=== PATIENT | male | born 1945 | race Caucasian/White ===

== ENCOUNTER → 2019-09-13 | Outpatient (CLI) | payer MEDICARE ==
--- NOTE | 2019-09-14 07:36 | ECHOF ---
Referral Reason:R94.31 abnormal EKG MEASUREMENTS -------- HEIGHT: 167.6 cm WEIGHT: 96.6 kg BP: RVIDd: 1.8 cm (< 3.3) IVSd: 1.0 cm (0.6 - 1.1) LVIDd: 4.1 cm (3.9 - 5.3) LVPWd: 0.9 cm (0.6 - 1.1) IVSs: 1.7 cm LVIDs: 1.6 cm LVPWs: 1.7 cm LAESV Index (A-L): 12.21 ml/m Ao Diam: 3.1 cm (2.0 - 3.7) AV Cusp: 1.5 cm (1.5 - 2.6) LA Diam: 3.0 cm (2.7 - 3.8) MV EXCURSION: 19.436 mm (> 18.000) MV EF SLOPE: 123 mm/s (70 - 150) EPSS: 0.8 cm MV E Michael: 0.92 m/s MV DecT: 154 ms MV A Michael: 1.05 m/s MV E/A Ratio: 0.88 RAP: 5.00 mmHg RVSP: 27.49 mmHg FINDINGS -------- Sinus rhythm. This was a technically good study. The left ventricular size is normal. Left ventricular wall thickness is normal. Overall left vent ricular systolic function is normal with, an EF between 55 - 60 %. Normal LAP. Grade 1 Diastolic Dy sfunction. The right ventricle is normal in size. The left atrial size is normal. Normal LA size by volume 22+/-6 ml/m2. The right atrial size is normal. The aortic valve is trileaflet and appears structurally normal. The mitral valve is normal. There is trace mitral regurgitation. The tricuspid valve appears structurally normal. Trace tricuspid regurgitation present. Right alonzo tricular systolic pressure is normal at < 35 mmHg. Pulmonic valve appears structurally normal. The aortic root size is normal. Normal inferior vena cava with normal inspiratory collapse consistent with estimated right atrial pre ssure of 5 mmHg. There is a small, generalized pericardial effusion present. CONCLUSIONS -------- 1. Sinus rhythm. 2. This was a technically good study. 3. The left ventricular size is normal. 4. Left ventricular wall thickness is normal. 5. Overall left ventricular systolic function is normal with, an EF between 55 - 60 %. 6. Normal LAP. Grade 1 Diastolic Dysfunction. 7. The right ventricle is normal in size. 8. The left atrial size is normal. 9. Normal LA size by volume 22+/-6 ml/m2. 10. The right atrial size is normal. 11. The aortic valve is trileaflet and appears structurally normal. 12. The mitral valve is normal. 13. There is trace mitral regurgitation. 14. The tricuspid valve appears structurally normal. 15. Trace tricuspid regurgitation present. 16. Right ventricular systolic pressure is normal at < 35 mmHg. 17. Pulmonic valve appears structurally normal. 18. The aortic root size is normal. 19. Normal inferior vena cava with normal inspiratory collapse consistent with estimated right atrial pressure of 5 mmHg. 20. There is a small, generalized pericardial effusion present. EXAMINER RATING CLERK: Ligia Grimm RDCS
== END | disposition home or self-care (01) ==
LOC: RADECHMAIN 13:27
PROVIDERS: ATTEND Family Medicine
DX: I31.3 Pericardial effusion (noninflammatory) (principal); I51.89 Other ill-defined heart diseases
CPT/HCPCS: 93306

== ENCOUNTER → 2020-04-09 | Outpatient (CLI) | payer MEDICARE | END | disposition home or self-care (01) | LOC: LABWHC1 12:18 | PROVIDERS: ATTEND Otolaryngology | DX: Z11.52 Encounter for screening for COVID-19 (principal) | CPT/HCPCS: U0003; C9803; U0005 ==

== ENCOUNTER 2020-06-28 14:53 | Emergency (ER) | payer MEDICARE ==
[2020-06-28 15:33] VITALS: BP 110/73; PULSE 101; RESP 16; TEMP 97.5
--- NOTE | 2020-06-28 16:33 | XR ---
EXAMINATION TYPE: XR soft tissue neck DATE OF EXAM: 06/28/2020 COMPARISON: None HISTORY: 74-year-old male dysphagia, trouble swallowing, dehydration. TECHNIQUE: AP and lateral views FINDINGS: No evident narrowing of the subglottic airway. Epiglottis and prevertebral soft tissues appear satisf actory. No abnormal narrowing of the nasopharyngeal or oropharyngeal airway. There is soft tissue ful lness along the inferior aspect of the floor of the mouth suspected to relate to patient body habitus . Patient is partially edentulous with some dental caries noted. Mild spondylotic change in the mid t o lower cervical spine. IMPRESSION: 1. Soft tissue fullness along the inferior aspect of the floor the mouth suspected to relate to saggi ng tissues and patient body habitus rather than edema from an infectious etiology. Correlate for any pain or tenderness here. 2. Patent airway. No prevertebral soft tissue swelling. 3. Patient is partially edentulous with some scattered dental caries.
== END 2020-06-28 17:36 | disposition left against medical advice (07) ==
LOC: EC 14:53
DX: R13.10 Dysphagia, unspecified (principal); E86.0 Dehydration; Z53.21 Procedure and treatment not carried out due to patient leaving prior to being seen by health care provider
CPT/HCPCS: 70360; 99499